=== PATIENT | female | born 1955 ===

== ENCOUNTER 2017-01-31 14:35 | Emergency (ER) | payer MEDICARE ==
[2017-01-31 14:47] VITALS: BP 136/86; PULSE 92; RESP 18; TEMP 97.8; O2SAT 95
--- NOTE | 2017-01-31 15:01 | C.PDOC ---
History Of Present Illness A 61 year old female presents to the emergency room for blood work. Pt was having an out pt procedure and a hearing health technician during the procedure stuck himself with out of the pt's needles. Pt agreed to come to ER for lab testing including HIV secondary to the needle stick. Patient denies any complaints and did not get stuck by a needle herself. Time Seen by Provider: 01/31/17 14:36 Chief Complaint (Nursing): Medical Clearance History Per: Patient, Truck Shop Supervisor History/Exam Limitations: language barrier Onset/Duration Of Symptoms: Hrs Current Symptoms Are (Timing): Still Present Severity: Mild Recent travel outside of the [place]: No Past Medical History Reviewed: Historical Data, Nursing Documentation, Vital Signs Vital Signs: Last Vital Signs Temp 97.8 F 01/31/17 14:40 Pulse 92 H 01/31/17 14:40 Resp 18 01/31/17 14:40 BP 136/86 01/31/17 14:40 Pulse Ox 95 01/31/17 15:51 - Medical History PMH: Diabetes, HTN, Hypercholesterolemia - [facility] Procedures INJECT/INFUSE NEC (08/28/13) NAIL REMOVAL (08/02/14) Family History: States: No Known Family Hx - Social History Hx Alcohol Use: No Hx Substance Use: No - Immunization History Hx Tetanus Toxoid Vaccination: Yes Hx Influenza Vaccination: No Hx Pneumococcal Vaccination: No Review Of Systems Except As Marked, All Systems Reviewed And Found Negative. Constitutional: Positive for: Other (Here for lab work). Negative for: Fever, Chills Gastrointestinal: Negative for: Nausea, Vomiting, Diarrhea Physical Exam - Physical Exam Appears: Well, Non-toxic, No Acute Distress Skin: Normal Color, Warm, Dry, No Rash Head: Atraumatic, Normacephalic Eye(s): bilateral: Normal Inspection, EOMI Nose: Normal Oral Mucosa: Moist Neck: Supple Chest: Symmetrical Respiratory: No Accessory Muscle Use Extremity: Normal ROM, No Tenderness Neurological/Psych: Oriented x3, Normal Speech, Normal Cognition ED Course And Treatment - Laboratory Results Result Diagrams: 01/31/17 15:01 01/31/17 15:01 O2 Sat by Pulse Oximetry: 95 Progress Note: Patient denies any active complaints. Patient given information to follow up for lab results. Disposition - Disposition Disposition: HOME/ ROUTINE Disposition Time: 15:00 Condition: STABLE Additional Instructions: Vaya a preston mdico o la clnica en 2-5 jaimes sin falta, para mas evaluacin. Volver a la murphy de emergencia en cualquier momento si los sntomas persisten o empeoran. Instructions: Needle Stick Injuries (ED) Print Language: MALAY - Clinical Impression Clinical Impression: Medical assessment - Scribe Statement The provider has reviewed the documentation as recorded by the Scribe Wicho Han All medical record entries made by the Scribe were at my direction and personally dictated by me. I have reviewed the chart and agree that the record accurately reflects my personal performance of the history, physical exam, medical decision making, and the department course for this patient. I have also personally directed, reviewed, and agree with the discharge instructions and disposition.
[2017-01-31 15:05] LABS: BASO % 0.4 % (0.0-2.0); EOS # 0.2 K/uL (0.0-0.7); EOS % 1.5 % (0.0-4.0); HEMATOCRIT 44.1 % (34.0-47.0); LYMPH # 3.5 K/uL (1.0-4.3); LYMPH % 33.2 % (20.0-40.0); MEAN CELL VOLUME 88.3 fL (81.0-99.0); MEAN CORPUSCULAR HEMOGLOBIN 28.8 pg (27.0-31.0); MEAN CORPUSCULAR HGB CONC 32.7 g/dL (33.0-37.0); MONO # 0.7 K/uL (0.0-0.8); MONO % 6.4 % (0.0-10.0); RED CELL DISTRIBUTION WIDTH 14.1 % (11.5-14.5); WHITE BLOOD COUNT 10.6 K/uL (4.8-10.8)
[2017-01-31 15:27] LABS: CHLORIDE 95 mmol/L (98-107)
[2017-01-31 15:28] LABS: POTASSIUM 3.8 mmol/L (3.6-5.2); SODIUM 137 mmol/L (132-148)
[2017-01-31 15:30] LABS: AMYLASE 98 U/L (30-110)
[2017-01-31 15:31] LABS: ALB/GLOB RATIO 1.4 (1.0-2.1); ALKALINE PHOSPHATASE 85 U/L (38-126); ALT/SGPT 31 U/L (9-52); AST/SGOT 37 U/L (14-36); BILIRUBIN,TOTAL 1.3 mg/dL (0.2-1.3); BLOOD UREA NITROGEN 13 mg/dL (7-17); CALCIUM 9.3 mg/dl (8.6-10.4); CARBON DIOXIDE 30 mmol/L (22-30); GFR AFRICAN-AMERICAN > 60; GLUCOSE,RANDOM 130 mg/dL (65-105); TOTAL PROTEIN 7.7 g/dL (6.3-8.3)
== END 2017-01-31 15:07 | disposition home or self-care (01) ==
LOC: C.ER 14:35
DX: Z00.00 Encounter for general adult medical examination without abnormal findings (principal)